=== PATIENT | female | born 1995 | race Caucasian/White ===

== ENCOUNTER → 2017-09-11 | Outpatient (CLI) | payer MEDICAID, BC ==
[2017-09-13 14:02] LABS: Creatinine, Random Urine 147 mg/dL
== END | disposition home or self-care (01) ==
LOC: LAB 05:24
PROVIDERS: ATTEND Family Medicine
DX: Z51.81 Encounter for therapeutic drug level monitoring (principal); Z79.899 Other long term (current) drug therapy
CPT/HCPCS: 80307; 80377